=== PATIENT | male | born 1945 | race Caucasian/White ===

== ENCOUNTER 2024-01-22 13:38 | Emergency (ER) | payer MEDICARE, OTHER, SELFPAY ==
[2024-01-22 13:45] VITALS: BP 141/69
[2024-01-22 14:14] LABS: % Basophils 0.9 % (0-2); % Eosinophils 0.9 % (0-6); % Immature Granulocytes 0.6 % (0-0.5); % Monocytes 11.1 % (1.7-9.3); % Neutrophils 82.5 % (42.2-75.2); Absolute Basophils 0.1 10^3/uL (0-0.2); Absolute Eosinophils 0.1 10^3/uL (0-0.7); Absolute Lymphocytes 0.3 10^3/uL (1.2-3.4); Absolute Monocytes 0.8 10^3/uL (0.1-0.6); Absolute Neutrophils 5.7 10^3/uL (1.4-6.5); Hematocrit 37.9 % (39.0-52.0); Hemoglobin 13.7 g/dL (13.0-18.0); Mean Corp Hgb Conc. 36.1 g/dL (33.0-37.0); Mean Corpuscular Hgb 30.8 pg (27.0-31.0); Mean Corpuscular Volume 85.2 fL (80.0-94.0); Nucleated Red Blood Cells % 0 % (-); Platelet Count 199 10^3/uL (130-400); Red Blood Cell Count 4.45 10^6/uL (4.70-6.10); Red Cell Dist. Width 12.5 % (11.5-14.5)
[2024-01-22 14:25] LABS: Lactic Acid 1.1 mmol/L (0.7-2.0)
[2024-01-22 14:26] LABS: ALT (SGPT) 24 U/L (0-50); AST (SGOT) 26 U/L (17-59); Albumin 4.4 g/dl (3.5-5.0); Alkaline Phosphatase 59 U/L (38-126); Blood Urea Nitrogen 13 mg/dl (9-20); Calcium 9.7 mg/dl (8.4-10.2); Carbon Dioxide 27 mmol/L (22-30); Chloride 98 mmol/L (98-107); Glucose 134 mg/dl (70-99); Potassium 4.2 mmol/L (3.5-5.1); Sodium 131 mmol/L (135-145); Total Bilirubin 0.3 mg/dl (0.2-1.3); Total Protein 6.7 g/dl (6.3-8.2); eGFR > 60.00
[2024-01-22 14:31] LABS: COVID-19 Antigen Negative (Negative)
[2024-01-22 16:31] VITALS: BMI 25.1
--- NOTE | 2024-01-22 17:05 | ED.GENMED ---
History of Present Illness
General
Chief Complaint: Cold/Flu/URI Symptoms
Time Seen by Provider: 01/22/24 16:26
Travel History
Have you had any contact with someone who has COVID-19?: No
Do you have any symptoms of coronavirus? Fever > 100 degrees, chills, cough, shortness of breath, sore throat, loss of taste or smell, muscle aches, or headache?: Yes
Symptoms:: bodyaches
History of Present Illness
History of Present Illness:
78-year-old male with history of prior TIA, hypertension, hyperlipidemia, and diet-controlled diabetes presents to the emergency department for evaluation of fatigue, nasal congestion, and low-grade fevers for the past 3 days. Denies any chest pain
or dyspnea. Cough is generally nonproductive. No chest pain or leg swelling.
Past History
Past History
ED Past Medical History: HTN, NIDDM, Psychiatric (Depression and schizophrenia) and Other (Detached retina)
ED Past Surgical History: None
Social History
Tobacco: Former smoker
Drug: None and Former user
Personal: Single
Living: alone
Employment: Not employed
Family History
Family History: Other
Review of Systems
Review of Systems
Allergies reviewed?: Yes
All Other Systems: ROS reviewed and negative except as documented in HPI and ROS
Phy Exam
Physical Exam
Physical Exam:
GEN: Well appearing, NAD, WDWN
HEENT: Oral mucosa moist, no scleral icterus
Cardiac: Regular rate and rhythm, no murmurs
Lung: No respiratory distress, no tachypnea, lungs clear to auscultation bilaterally
MSK: No gross deformity or injuries
Skin: Good color, no pallor or jaundice, no rashes
Neuro: AO x3, moves all extremities freely
Psych: Calm, cooperative
Course
Orders/Labs/Results
Orders:
Orders
01/22/24 13:47
CXR2 [CR Chest - 2 Views ] Urgent
Comment:
Reason For Exam: uri s/s
01/22/24 14:02
COVID-19 Antigen Urgent
Source: Nasal Swab
Complete Blood Count/With Diff Urgent
Comprehensive Metabolic Panel Urgent
Lactic Acid Urgent
Blood Culture Urgent
GRISELDA Source: Blood/Venous
Specimen Description:
Influenza A+B Rapid Molecular Urgent
GRISELDA Source: Nasal Swab
Specimen Description:
Abnormal Lab Results
01/22/24
14:02
RBC 4.45 L 10^6/uL
(4.70-6.10)
Hct 37.9 L %
(39.0-52.0)
Absolute Lymphs (auto) 0.3 L 10^3/uL
(1.2-3.4)
Absolute Monos (auto) 0.8 H 10^3/uL
(0.1-0.6)
Immature Gran % 0.6 H %
(0-0.5)
Neutrophils % 82.5 H %
(42.2-75.2)
Lymphocytes % 4.0 L %
(20.5-51.1)
Monocytes % 11.1 H %
(1.7-9.3)
Sodium 131 L mmol/L
(135-145)
Glucose 134 H mg/dl
(70-99)
01/22/24 14:02
01/22/24 14:02
Vital Signs
Initial and Last Documented VS:
Initial Vital Signs
Temp Pulse Resp BP Pulse Ox
100.2 F 80 16 141/69 98
01/22/24 13:45 01/22/24 13:45 01/22/24 13:45 01/22/24 13:45 01/22/24 13:45
Last Documented Vital Signs
Temp Pulse Resp BP Pulse Ox
100.2 F 80 16 141/69 98
01/22/24 13:45 01/22/24 13:45 01/22/24 13:45 01/22/24 13:45 01/22/24 13:45
MDM/Problems Addressed
MDM/Problems Addressed:
Patient is clinically well with normal vital signs. He is positive for influenza A. He is outside the treatment window for antivirals at this time. Discussed supportive care and return parameters. Chest x-ray is unremarkable by my interpretation
*Critical Care Note
Total Time (30-74mins, 75-104mins- exclusive of procedures): Not Applicable
ED Attending Note
-
Portions of this chart may have been created with voice recognition software.� Occasional wrong word or��sound alike� substitutions may have occurred due to the inherent limitations of voice recognition software.
Discharge Plan
Departure
Patient Disposition: Home (Routine Discharge)
Date of Disposition: 01/22/24
Time of Disposition: 17:05
Patient with high blood pressure during this ER visit?: Yes
Discharge Problem:
Influenza A
Instructions: Flu, Adult (DC)
Prescriptions:
No Action
simvastatin 10 MG tablet
20 mg PO DAILY
lamotrigine [Lamictal] 150 MG tablet
100 mg PO DAILY
venlafaxine [Effexor XR] 150 MG capsule,extended release 24hr
300 mg PO DAILY
Patient Comments:
patient states unsure of doses
olanzapine [Zyprexa] 10 MG tablet
10 mg PO HS
risperidone [Risperdal] 3 MG tablet
3 mg PO BID
lorazepam [Ativan] 1 MG tablet
1 mg PO DAILY
ibuprofen 600 MG tablet
600 mg PO Q6H Qty: 30 0RF
valsartan-hydrochlorothiazide 1 EACH tablet
1 ea PO DAILY
valsartan 80 MG tablet
80 mg PO DAILY
amlodipine 5 MG tablet
5 mg PO DAILY
aspirin 325 MG tablet
81 mg PO DAILY
famotidine 10 mg Tablet
10 mg PO BID
Interventions
Interventions:
*Risk Screen - Suicide Last Done: 01/22/24 16:39
*General Assessment Last Done: 01/22/24 16:31
*Neglect/Abuse Screening Last Done: 01/22/24 16:38
ED- Fall Risk Assessment Last Done: 01/22/24 17:35
*ED COVID-19 Vaccine History Last Done: 01/22/24 13:45
*Nursing Disposition Last Done: 01/22/24 17:35
ED- Pulmonary Assessment Last Done: 01/22/24 16:34
Discharge Date and Time
Discharge Date/Time: 01/22/24 17:36
== END 2024-01-22 17:36 | disposition home or self-care (01) ==
LOC: EMR 13:38
PROVIDERS: Emergency Medicine; EMERGENCY PHYSICIAN Emergency Medicine; FAMILY PHYSICIAN Internal Medicine
DX: J10.1 Influenza due to other identified influenza virus with other respiratory manifestations (principal); I10 Essential (primary) hypertension; E78.5 Hyperlipidemia, unspecified; E11.9 Type 2 diabetes mellitus without complications; Z87.891 Personal history of nicotine dependence
CPT/HCPCS: 99284; 71046; 80053; 83605; 85025; 87040; 87502; 87811

== ENCOUNTER → 2024-02-19 16:18 | Outpatient (REF) | payer MEDICARE, OTHER, SELFPAY ==
[2024-02-19 17:34] LABS: % Basophils 1.1 % (0-2); % Eosinophils 4.6 % (0-6); % Immature Granulocytes 0.7 % (0-0.5); % Monocytes 10.4 % (1.7-9.3); % Neutrophils 64.2 % (42.2-75.2); Absolute Basophils 0.1 10^3/uL (0-0.2); Absolute Eosinophils 0.3 10^3/uL (0-0.7); Absolute Immature Granulocytes 0.1 10^3/uL (0-0.05); Absolute Lymphocytes 1.4 10^3/uL (1.2-3.4); Absolute Monocytes 0.8 10^3/uL (0.1-0.6); Absolute Neutrophils 4.7 10^3/uL (1.4-6.5); Hematocrit 41.1 % (39.0-52.0); Hemoglobin 14.3 g/dL (13.0-18.0); Mean Corp Hgb Conc. 34.8 g/dL (33.0-37.0); Mean Corpuscular Hgb 30.1 pg (27.0-31.0); Mean Corpuscular Volume 86.5 fL (80.0-94.0); Mean Platelet Volume 9.1 fL (7.4-10.4); Nucleated Red Blood Cells % 0 % (-); Platelet Count 270 10^3/uL (130-400); Red Blood Cell Count 4.75 10^6/uL (4.70-6.10); Red Cell Dist. Width 13.4 % (11.5-14.5); White Blood Cell Count 7.3 10^3/uL (4.8-10.8)
[2024-02-19 17:51] LABS: ALT (SGPT) 33 U/L (0-50); AST (SGOT) 28 U/L (17-59); Albumin 4.5 g/dl (3.5-5.0); Alkaline Phosphatase 71 U/L (38-126); Blood Urea Nitrogen 12 mg/dl (9-20); Calcium 10.2 mg/dl (8.4-10.2); Carbon Dioxide 28 mmol/L (22-30); Chloride 103 mmol/L (98-107); Glucose 115 mg/dl (70-99); HDL Cholesterol 59 mg/dl; LDL Cholesterol, Calculated 78 mg/dl; Potassium 4.6 mmol/L (3.5-5.1); Sodium 137 mmol/L (135-145); Total Bilirubin 0.4 mg/dl (0.2-1.3); Total Cholesterol 161 mg/dl (50-199); Total Protein 7.1 g/dl (6.3-8.2); Triglyceride 121 mg/dl (10-149); Very Low Density Lipoprotein 24 mg/dl (0-30); eGFR > 60.00
[2024-02-19 21:40] LABS: Microalbumin, Random Urine < 0.6 mg/dl (0.6-1.7)
[2024-02-20 08:36] LABS: Glycohemoglobin (HgbA1c) 6.5 % (4.0-5.6)
== END ==
LOC: REG 16:18
PROVIDERS: ATTENDING PHYSICIAN Internal Medicine
DX: I10 Essential (primary) hypertension (principal); E11.9 Type 2 diabetes mellitus without complications; E78.2 Mixed hyperlipidemia
CPT/HCPCS: 36415; 80053; 80061; 82043; 82570; 83036; 85025

== ENCOUNTER 2024-03-24 03:19 | Emergency (ER) | payer MEDICARE, OTHER, SELFPAY ==
[2024-03-24 03:24] VITALS: BMI 25.0
[2024-03-24 03:33] VITALS: BP 171/79
[2024-03-24 03:44] LABS: % Basophils 0.8 % (0-2); % Eosinophils 4.6 % (0-6); % Immature Granulocytes 0.6 % (0-0.5); % Lymphocytes 21.5 % (20.5-51.1); % Monocytes 10.4 % (1.7-9.3); % Neutrophils 62.1 % (42.2-75.2); Absolute Basophils 0.1 10^3/uL (0-0.2); Absolute Eosinophils 0.3 10^3/uL (0-0.7); Absolute Lymphocytes 1.4 10^3/uL (1.2-3.4); Absolute Monocytes 0.7 10^3/uL (0.1-0.6); Absolute Neutrophils 4.1 10^3/uL (1.4-6.5); Hematocrit 37.5 % (39.0-52.0); Hemoglobin 13.4 g/dL (13.0-18.0); Mean Corp Hgb Conc. 35.7 g/dL (33.0-37.0); Mean Corpuscular Hgb 30.9 pg (27.0-31.0); Mean Corpuscular Volume 86.4 fL (80.0-94.0); Mean Platelet Volume 9.1 fL (7.4-10.4); Nucleated Red Blood Cells % 0 % (-); Platelet Count 251 10^3/uL (130-400); Red Blood Cell Count 4.34 10^6/uL (4.70-6.10); Red Cell Dist. Width 13.2 % (11.5-14.5); White Blood Cell Count 6.6 10^3/uL (4.8-10.8)
[2024-03-24 04:00] VITALS: BP 161/61
[2024-03-24 04:15] LABS: ALT (SGPT) 20 U/L (0-50); AST (SGOT) 28 U/L (17-59); Albumin 4.3 g/dl (3.5-5.0); Alkaline Phosphatase 46 U/L (38-126); Blood Urea Nitrogen 30 mg/dl (9-20); Calcium 10.2 mg/dl (8.4-10.2); Carbon Dioxide 23 mmol/L (22-30); Chloride 106 mmol/L (98-107); Estimated Creatinine Clearance 64 ml/min; Glucose 126 mg/dl (70-99); Potassium 4.4 mmol/L (3.5-5.1); Sodium 138 mmol/L (135-145); Total Bilirubin 0.4 mg/dl (0.2-1.3); Total Protein 6.8 g/dl (6.3-8.2); eGFR > 60.00
[2024-03-24 04:30] LABS: Troponin I 0.016 ng/ml
--- NOTE | 2024-03-24 04:48 | ED.GENMED ---
History of Present Illness
General
Chief Complaint: Chest Pain
Source: patient
Exam Limitations: none
Time Seen by Provider: 03/24/24 03:41
Nursing documentation reviewed up to this point in time: agreed with
Travel History
Have you had any contact with someone who has COVID-19?: No
Do you have any symptoms of coronavirus? Fever > 100 degrees, chills, cough, shortness of breath, sore throat, loss of taste or smell, muscle aches, or headache?: No
History of Present Illness
History of Present Illness:
Patient presents to ED secondary to intermittent chest pain associated with 'racing' sensation since yesterday afternoon. Chest pain described as dull, nonradiating, without any alleviating or exacerbating factors. Patient states that chest pain
would last seconds to minutes, with spontaneous resolution. Patient has had number of similar symptoms in the past, and has been evaluated by bd special education teacher. Denies previous history of heart disease. Denies recent illness. Denies recent travel or
surgery. Denies leg pain or swelling. Denies back pain. Denies trauma. At the time of evaluation ED, patient is without any chest pain.
Past History
Past History
ED Past Medical History: HTN, NIDDM, Psychiatric (Depression and schizophrenia) and Other (Detached retina)
ED Past Surgical History: None
Social History
Tobacco: Former smoker
Drug: None and Former user
Personal: Single
Living: alone
Employment: Not employed
Family History
Family History: Other
Review of Systems
Review of Systems
Allergies reviewed?: Yes
All Other Systems: ROS reviewed and negative except as documented in HPI and ROS
Constitutional: Reports no symptoms; Denies fever
EENT: Reports no symptoms
Respiratory: Reports no symptoms; Denies trouble breathing
Cardiac: Reports chest pain and palpitations
ABD/GI: Reports no symptoms
: Reports no symptoms
Musculoskeletal: Reports no symptoms
Skin: Reports no symptoms
Neurological: Reports no symptoms
Phy Exam
Physical Exam
Physical Exam:
Physical Exam
General: no apparent distress, not acutely ill. afebrile.
Head: nc/at. eomi
Neck: supple. no meningeal signs.
Heart: s1/s2 regular rate and rhythm, no murmur. equal radial pulses.
Lungs: no acute respiratory distress. clear bilaterally
Abdomen: normal bowel sounds. not tender.
Neuro: alert and oriented. no focal neurological deficits
Skin: no rash
Psychiatric: well kept. interactive and cooperative
Extremities: no edema. no calf tenderness
Scores
Heart Score for Chest Pain Patients
STEMI patient?: No
History: Slightly or Non-Suspicious
ECG: Normal
Age: >/= 65 years
Risk Factors: 1 or 2 Risk Factors
Troponin: </= Normal Limit
Heart Score for Chest Pain Patients: 3
Heart Score Risk: 2.5% MACE over next 6 weeks
Course
Orders/Labs/Results
Orders:
Orders
03/24/24 03:22
Electrocardiogram (*1) Urgent
Reason for Study: Chest Pain
Cardiac Monitoring- Treatment ONCE
EKG- Treatment ONCE
IV Insert/Care/Rem.- Treatment PRN
O2 Therapy [RESP] Urgent
Titrate/Wean O2 to maintain O2 sat greater than (%): 90
Special Instructions: Maintain sats >/=90%
Pulse Ox/spot Check [RESP] Urgent
Quantity: 1
Special Instructions: ON ROOM AIR
03/24/24 03:39
Complete Blood Count/With Diff Urgent
Comprehensive Metabolic Panel Urgent
Troponin I Urgent
03/24/24 04:48
0.9% Sodium Chloride 500 ml [Nss] 500 ml IV BOLUS
03/24/24 07:30
Electrocardiogram (*1) Urgent
Reason for Study: Chest Pain
EKG- Treatment ONCE
03/24/24 07:42
Troponin I Urgent
Abnormal Lab Results
03/24/24
03:39
RBC 4.34 L 10^6/uL
(4.70-6.10)
Hct 37.5 L %
(39.0-52.0)
Absolute Monos (auto) 0.7 H 10^3/uL
(0.1-0.6)
Immature Gran % 0.6 H %
(0-0.5)
Monocytes % 10.4 H %
(1.7-9.3)
BUN 30 H mg/dl
(9-20)
Glucose 126 H mg/dl
(70-99)
03/24/24 03:39
03/24/24 03:39
Vital Signs
Initial and Last Documented VS:
Initial Vital Signs
Temp Pulse Resp BP Pulse Ox
98.7 F 70 14 171/79 96
03/24/24 03:33 03/24/24 03:33 03/24/24 03:33 03/24/24 03:33 03/24/24 03:33
Last Documented Vital Signs
Temp Pulse Resp BP Pulse Ox
98.7 F 64 20 161/83 95
03/24/24 03:33 03/24/24 08:45 03/24/24 08:45 03/24/24 08:00 03/24/24 08:45
MDM/Problems Addressed
MDM/Problems Addressed:
Patient remains chest pain-free during observation ED. Minimal elevation in troponin noted, without any acute changes on EKG. History and exam inconsistent with acute coronary syndrome. As such, will repeat troponin with EKG. If there is any
significant change with his second troponin, will contact cardiology for consultation.
*EKG
Interpreted by ED Provider?: Yes
EKG Intrepretation Date: 03/24/24
Heart Rate: 65
Rate: normal
Rhythm: sinus
[place]: normal axis
Interval: normal interval
*Critical Care Note
Total Time (30-74mins, 75-104mins- exclusive of procedures): Not Applicable
ED Attending Note
-
Portions of this chart may have been created with voice recognition software.� Occasional wrong word or��sound alike� substitutions may have occurred due to the inherent limitations of voice recognition software.
Discharge Plan
Departure
Patient Disposition: Home (Routine Discharge)
Date of Disposition: 03/24/24
Time of Disposition: 09:07
Patient with high blood pressure during this ER visit?: No
Condition: Good
Discharge Problem:
Chest pain
Instructions: Chest Pain PCP Follow Up
Prescriptions:
No Action
Unobtainable
0
Referrals:
Sivakumar Mccracken MD [Family Provider] -
Interventions
Interventions:
*Risk Screen - Suicide Last Done: 03/24/24 03:24
*General Assessment Last Done: 03/24/24 03:24
*Neglect/Abuse Screening Last Done: 03/24/24 03:24
ED- Fall Risk Assessment Last Done: 03/24/24 03:51
*ED COVID-19 Vaccine History Last Done: 03/24/24 03:24
*Nursing Disposition Last Done: 03/24/24 09:32
ED- Cardiac Assessment Last Done: 03/24/24 03:45
Discharge Date and Time
Discharge Date/Time: 03/24/24 09:33
Print Language: LAO
[2024-03-24 05:00] VITALS: BP 136/67
[2024-03-24] MEDS: NSS 500 IV (05:06)
[2024-03-24 06:00] VITALS: BP 119/73
[2024-03-24 07:39] VITALS: BP 162/78
[2024-03-24 08:00] VITALS: BP 161/83
[2024-03-24 08:13] LABS: Troponin I < 0.012 ng/ml
== END 2024-03-24 09:33 | disposition home or self-care (01) ==
LOC: EMR 03:19
PROVIDERS: Emergency Medicine; EMERGENCY PHYSICIAN Emergency Medicine; FAMILY PHYSICIAN Internal Medicine
DX: R07.89 Other chest pain (principal); I10 Essential (primary) hypertension; E11.9 Type 2 diabetes mellitus without complications; F20.9 Schizophrenia, unspecified; Z87.891 Personal history of nicotine dependence
CPT/HCPCS: 99283; 96360; 80053; 84484; 85025; 93005

== ENCOUNTER → 2024-05-12 09:17 | Emergency (ER) | payer MEDICARE, OTHER, SELFPAY ==
[2024-05-12 09:23] VITALS: BP 175/105; BMI 24.6
--- NOTE | 2024-05-12 09:33 | ED.GENMED ---
History of Present Illness
<Pete German DO - Last Filed: 05/12/24 14:25>
General
Chief Complaint: Seizure
Source: patient and ambulance crew
Exam Limitations: none
Time Seen by Provider: 05/12/24 09:33
Nursing documentation reviewed up to this point in time: agreed with
History of Present Illness
History of Present Illness:
78-year-old male presents emergency room after having episode of unresponsiveness. Is unclear whether it was witnessed. He bit his lip and lost control of his bladder.
Past History
<Maddy Marrero, TECHNICAL ASST - Last Filed: >
Past History
ED Past Medical History: HTN, NIDDM, Psychiatric (Depression and schizophrenia) and Other (Detached retina)
ED Past Surgical History: None
Social History
Tobacco: Former smoker
Drug: None and Former user
Personal: Single
Living: alone
Employment: Not employed
Family History
Family History: Other
Review of Systems
<Pete German, DO - Last Filed: 05/12/24 14:25>
Review of Systems
Allergies reviewed?: Yes
All Other Systems: Not applicable
Constitutional: Reports no symptoms
EENT: Reports no symptoms
Respiratory: Reports no symptoms
Cardiac: Reports no symptoms
ABD/GI: Reports no symptoms
: Reports incontinence
Musculoskeletal: Reports no symptoms
Skin: Reports no symptoms
Neurological: Reports no symptoms
Endocrine: Reports no symptoms
Hematologic/Lymphatic: Reports no symptoms
Psychiatric: Reports no symptoms
Phy Exam
<Pete German DO - Last Filed: 05/12/24 14:25>
Physical Exam
Physical Exam:
Physical Exam
General: no apparent distress, not acutely ill, wet pants from urination
Neck: supple. no meningeal signs. normal posterior pharynx
Heart: s1/s2 regular rate and rhythm, no murmur. equal radial
pulses.
HEENT: Pupils equal round reactive to light, EOMI
Lungs: no acute respiratory distress. clear bilaterally
Abdomen: normal bowel sounds. not tender. no CVAT
Neuro: alert and oriented. no focal neurological deficits cranial nerves II through XII intact
Skin: no rash
Psychiatric: well kept. interactive and cooperative
Extremities: no edema. no calf tenderness. negative homans. good distal pulses
Course
<Pete German, DO - Last Filed: 05/12/24 14:25>
Orders/Labs/Results
Orders:
Orders
05/12/24 09:29
EKG [Electrocardiogram (*1)] Urgent
Reason for Study: Hypertension, Benign
EKG- Treatment ONCE
05/12/24 09:51
CT Head W/o Iv Contrast Urgent
Comment:
Reason For Exam: seizure
IV Insert/Care/Rem.- Treatment PRN
05/12/24 10:02
Complete Blood Count/With Diff Urgent
Comprehensive Metabolic Panel Urgent
05/12/24 14:16
Lamotrigine [Lamictal] 100 mg PO NOW STA
Abnormal Lab Results
05/12/24 05/12/24
09:40 10:02
Abs Immat Gran (auto) 0.1 H 10^3/uL
(0-0.05)
Absolute Neuts (auto) 7.4 H 10^3/uL
(1.4-6.5)
Absolute Lymphs (auto) 0.8 L 10^3/uL
(1.2-3.4)
Immature Gran % 0.6 H %
(0-0.5)
Neutrophils % 81.8 H %
(42.2-75.2)
Lymphocytes % 9.1 L %
(20.5-51.1)
Carbon Dioxide 19 L mmol/L
(22-30)
Glucose 204 H mg/dl
(70-99)
Calcium 10.3 H mg/dl
(8.4-10.2)
POC Glucose 240 H mg/dl
(70-99)
05/12/24 10:02
05/12/24 10:02
Vital Signs
Initial and Last Documented VS:
Initial Vital Signs
Temp Pulse Resp BP Pulse Ox
98.6 F 95 24 175/105 96
05/12/24 09:23 05/12/24 09:23 05/12/24 09:23 05/12/24 09:23 05/12/24 09:23
Last Documented Vital Signs
Temp Pulse Resp BP Pulse Ox
98.6 F 79 22 172/93 96
05/12/24 09:23 05/12/24 14:00 05/12/24 14:00 05/12/24 13:00 05/12/24 13:15
<Maddy Marrero, TECHNICAL ASST - Last Filed: >
Orders/Labs/Results
Orders:
Orders
05/12/24 09:29
EKG [Electrocardiogram (*1)] Urgent
Reason for Study: Hypertension, Benign
EKG- Treatment ONCE
05/12/24 09:51
CT Head W/o Iv Contrast Urgent
Comment:
Reason For Exam: seizure
IV Insert/Care/Rem.- Treatment PRN
05/12/24 10:02
Complete Blood Count/With Diff Urgent
Comprehensive Metabolic Panel Urgent
05/12/24 14:16
Lamotrigine [Lamictal] 100 mg PO NOW STA
Abnormal Lab Results
05/12/24 05/12/24
09:40 10:02
Abs Immat Gran (auto) 0.1 H 10^3/uL
(0-0.05)
Absolute Neuts (auto) 7.4 H 10^3/uL
(1.4-6.5)
Absolute Lymphs (auto) 0.8 L 10^3/uL
(1.2-3.4)
Immature Gran % 0.6 H %
(0-0.5)
Neutrophils % 81.8 H %
(42.2-75.2)
Lymphocytes % 9.1 L %
(20.5-51.1)
Carbon Dioxide 19 L mmol/L
(22-30)
Glucose 204 H mg/dl
(70-99)
Calcium 10.3 H mg/dl
(8.4-10.2)
POC Glucose 240 H mg/dl
(70-99)
05/12/24 10:02
05/12/24 10:02
Vital Signs
Initial and Last Documented VS:
Initial Vital Signs
Temp Pulse Resp BP Pulse Ox
98.6 F 95 24 175/105 96
05/12/24 09:23 05/12/24 09:23 05/12/24 09:23 05/12/24 09:23 05/12/24 09:23
Last Documented Vital Signs
Temp Pulse Resp BP Pulse Ox
98.6 F 79 22 172/93 96
05/12/24 09:23 05/12/24 14:00 05/12/24 14:00 05/12/24 13:00 05/12/24 13:15
<Pete German, DO - Last Filed: 05/12/24 14:25>
MDM/Problems Addressed
Differential Diagnosis Includes:
Seizure, intracranial bleed
MDM/Problems Addressed:
78-year-old male with likely seizure. Will increase Lamictal to twice a day. Unclear cause of seizure. Patient will follow-up with neurology.
Chronic conditions affecting care: HTN and Psychiatric illness (Multiple psychiatric medications that could cause seizure)
Acute Exacerbation and/or Progression of Chronic Illness: HTN and Psychiatric illness (Multiple psychiatric medications that could cause seizure)
<Pete German DO - Last Filed: 05/12/24 14:25>
*Radiology
Radiology exam reviewed: radiology read reviewed (CT head no acute findings)
*Pulse Oximetry
Patient hypoxic: no
*EKG
Interpreted by ED Provider?: Yes
EKG Intrepretation Date: 05/12/24
EKG Intrepretation Time: 09:32
Interpretation: normal
Comparison EKG: changes noted
Heart Rate: 92
Rate: normal
Rhythm: sinus
[place]: normal axis
Interval: normal interval
QRS Pattern: normal QRS
Ischemia: no ischemia
*Neon Electrician Interpretation
Rate: normal
Interpretation: normal
Heart Rate: 90
Rhythm: sinus
*Critical Care Note
Total Time (30-74mins, 75-104mins- exclusive of procedures): Not Applicable
Data Reviewed
Review of Other/Old Records Reveals: Labs
<Pete German DO - Last Filed: 05/12/24 14:25>
Patient Management
Social determinants of health affecting care: Living situation
Discussion with other providers: [facility] (Seen by Dr. Butler, neurology, recommends increase Lamictal to 100 mg twice a day)
Escalation/DeEscalation of care consider admission/obs:
Admit not indicated
ED Attending Note
<Maddy Marrero, TECHNICAL ASST - Last Filed: >
-
Portions of this chart may have been created with voice recognition software.� Occasional wrong word or��sound alike� substitutions may have occurred due to the inherent limitations of voice recognition software.
Discharge Plan
Departure
Patient Disposition: Home (Routine Discharge)
Date of Disposition: 05/12/24
Time of Disposition: 14:22
Patient with high blood pressure during this ER visit?: Yes
Condition: Good
Discharge Problem:
Seizure
Instructions: Seizures, Adult (DC), BLOOD PRESSURE
Prescriptions:
New
lamotrigine [Subvenite] 100 mg tablet
100 mg PO BID Qty: 60 0RF
Referrals:
Jerrod Butler MD [Active] - Call in 1-3 days for appt
Sivakumar Mccracken MD [Family Provider] -
Interventions
Interventions:
*Risk Screen - Suicide Last Done: 05/12/24 09:23
*General Assessment Last Done: 05/12/24 09:23
*Neglect/Abuse Screening Last Done: 05/12/24 09:23
*ED COVID-19 Vaccine History Last Done: 05/12/24 09:30
ED- Neurological Assessment Last Done: 05/12/24 09:32
Discharge Date and Time
Print Language: TAJIK
[2024-05-12 09:41] LABS: Glucose - Point of Care 240 mg/dl (70-99)
[2024-05-12 10:17] LABS: % Basophils 0.8 % (0-2); % Eosinophils 1.1 % (0-6); % Immature Granulocytes 0.6 % (0-0.5); % Lymphocytes 9.1 % (20.5-51.1); % Monocytes 6.6 % (1.7-9.3); % Neutrophils 81.8 % (42.2-75.2); Absolute Basophils 0.1 10^3/uL (0-0.2); Absolute Eosinophils 0.1 10^3/uL (0-0.7); Absolute Immature Granulocytes 0.1 10^3/uL (0-0.05); Absolute Lymphocytes 0.8 10^3/uL (1.2-3.4); Absolute Monocytes 0.6 10^3/uL (0.1-0.6); Absolute Neutrophils 7.4 10^3/uL (1.4-6.5); Hematocrit 39.7 % (39.0-52.0); Hemoglobin 14.5 g/dL (13.0-18.0); Mean Corp Hgb Conc. 36.5 g/dL (33.0-37.0); Mean Corpuscular Hgb 30.6 pg (27.0-31.0); Mean Corpuscular Volume 83.8 fL (80.0-94.0); Nucleated Red Blood Cells % 0 % (-); Red Blood Cell Count 4.74 10^6/uL (4.70-6.10); Red Cell Dist. Width 12.5 % (11.5-14.5)
[2024-05-12 10:33] LABS: ALT (SGPT) 23 U/L (0-50); AST (SGOT) 35 U/L (17-59); Albumin 4.9 g/dl (3.5-5.0); Alkaline Phosphatase 53 U/L (38-126); Blood Urea Nitrogen 19 mg/dl (9-20); Calcium 10.3 mg/dl (8.4-10.2); Carbon Dioxide 19 mmol/L (22-30); Chloride 104 mmol/L (98-107); Estimated Creatinine Clearance 68 ml/min; Glucose 204 mg/dl (70-99); Potassium 4.9 mmol/L (3.5-5.1); Sodium 137 mmol/L (135-145); Total Bilirubin 0.6 mg/dl (0.2-1.3); Total Protein 7.5 g/dl (6.3-8.2); eGFR > 60.00
[2024-05-12 11:00] VITALS: BP 154/77
[2024-05-12 12:00] VITALS: BP 165/99
[2024-05-12 13:00] VITALS: BP 172/93
--- NOTE | 2024-05-12 13:18 | CON.NEURO4 ---
Consultation - Neurology 4
-
CONSULTING PHYSICIAN: Alex Butler
REFERRING PHYSICIAN: ER
DICTATED BY: Alex Butler
DATE/TIME OF REQUEST: 05/12/24
DATE/TIME OF CONSULTATION: 05/12/24
Reason for Consultation: Suspect first seizure
History of Present Illness:
Patient is a 78-year-old male with a past ministry of schizophrenia, anxiety, hypertension and hyperlipidemia presented hospital with spell of abnormal behavior witnessed by friends at home concerning for potential epileptic seizure.
Patient reports he has not been eating very well lately but otherwise denies any fevers or unusual headaches or head trauma. He has been consistently taking 1 mg p.o. lorazepam for many years for anxiety and notes no recent changes in this or any
stopping the medication suddenly.
Earlier in the day he had had a friend over who had witnessed unusual episode the patient received to have some staring and poor responsiveness lasting a few minutes. Patient did have a tongue bite with some minor bleeding as well as urinary
incontinence following this. Patient feels it does seem like he had altered or loss of consciousness with this event. 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
He denies any changes in antipsychotic medications or lamotrigine, reports that he sees a PCP but does not follow with a psychiatrist actively.
Past Medical History: Hypertension, hyperlipidemia, schizophrenia, hyperlipidemia, GERD
Surgical History: None
Family History: No family history of seizure
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
Review of Symptoms:
Patient denies any fever, headache, chest pain, shortness of breath, GI or symptoms.
Physical Exam:
Elderly man no acute distress no signs of head trauma there is a small left lateral tongue bite present, eyes are clear, neck supple full range of motion with no masses no meningismus, heart rate regular breathing unlabored abdomen soft nontender no
lower extremity edema
Neurologic Examination:
The patient is awake, alert and oriented x 3. (He/She) is able to follow commands and answer questions appropriately. There is no aphasia or dysarthria. On cranial nerve assessment, pupils are 3 mm bilateral, round and reactive to light and
accommodation. Visual beverly are full. Extraocular movements are intact. Facial sensations are intact and bilaterally symmetrical, there is no facial asymmetry. Hearing is intact bilaterally to normal conversation volume. Tongue palate and uvula
are midline. Sternocleidomastoid strengths are full bilaterally. Motor strengths are 5/5 bilateral upper and lower extremities on medical research [place] scale. There is no drift or involuntary movement noted. Deep tendon reflexes are 2+ bilateral
upper and lower extremities and Babinski is absent bilaterally. Sensations of pain, touch, temperature and vibration are intact and bilaterally symmetrical. There was no extinction noted on double simultaneous stimulation. Coordination is intact by
finger to nose bilaterally.
Neuro Imaging: CT head unremarkable
Impressions
High suspicion for first time epileptic seizure with impairment of consciousness. Patient is on antipsychotic medications at baseline which can produce a small decrease in seizure threshold, CT head noncontrast no significant structural lesions
and patient does not have any history of previous brain injury or strong risk factors for seizures. Given I do think this is most likely an epileptic seizure would err on the side of treatment which in this case would be a small change by
increasing his lamotrigine dose. Explained to the patient that that he should not drive for the next 6 and would need to be reported to [facility] and would need to follow with neurology department. Differential diagnosis would include nonepileptic
seizure or behavioral event, or syncope. Mental status has improved, patient awake alert interactive.
Recommendations:
1. Would increase lamotrigine to 100 mg twice daily
2. Reiterated to patient recommend no changes in lorazepam dosing which has been consistent and stable with
3. Provided information for neurology office follow-up in 4 to 6-weeks
4. For future neurology follow-up would benefit from routine EEG as well as consideration for brain MRI without contrast
5. No barriers to discharge home from standpoint
6. No changes recommended to regular antipsychotic medications
Discussed patient care with: Patient and Dr German
[2024-05-12 13:45] LABS: Platelet Count 252 10^3/uL (130-400)
[2024-05-12] MEDS: LAMICTAL 100 MG PO (14:29)
== END | disposition home or self-care (01) ==
LOC: EMR 09:17
PROVIDERS: EMERGENCY PHYSICIAN Emergency Medicine; FAMILY PHYSICIAN Internal Medicine
DX: R56.9 Unspecified convulsions (principal); I10 Essential (primary) hypertension; E11.9 Type 2 diabetes mellitus without complications; F20.9 Schizophrenia, unspecified; K21.9 Gastro-esophageal reflux disease without esophagitis; E78.00 Pure hypercholesterolemia, unspecified; Z87.891 Personal history of nicotine dependence
CPT/HCPCS: 99284; 70450; 80053; 82962; 85025; 93005

== ENCOUNTER → 2024-07-03 10:32 | Outpatient (REF) | payer MEDICARE, OTHER, SELFPAY ==
[2024-07-03 12:58] LABS: Glycohemoglobin (HgbA1c) 5.9 % (4.0-5.6)
== END ==
LOC: REG 10:32
PROVIDERS: ATTENDING PHYSICIAN Internal Medicine
DX: E11.9 Type 2 diabetes mellitus without complications (principal)
CPT/HCPCS: 36415; 83036

== ENCOUNTER → 2024-11-28 11:57 | Outpatient (REF) | payer MEDICARE, OTHER, SELFPAY ==
[2024-11-28 13:06] LABS: % Basophils 1.3 % (0-2); % Eosinophils 4.1 % (0-6); % Immature Granulocytes 0.3 % (0-0.5); % Monocytes 8.4 % (1.7-9.3); % Neutrophils 62.9 % (42.2-75.2); Absolute Basophils 0.1 10^3/uL (0-0.2); Absolute Eosinophils 0.3 10^3/uL (0-0.7); Absolute Lymphocytes 1.4 10^3/uL (1.2-3.4); Absolute Monocytes 0.5 10^3/uL (0.1-0.6); Absolute Neutrophils 3.9 10^3/uL (1.4-6.5); Hematocrit 42.8 % (39.0-52.0); Hemoglobin 14.9 g/dL (13.0-18.0); Mean Corp Hgb Conc. 34.8 g/dL (33.0-37.0); Mean Corpuscular Hgb 30.6 pg (27.0-31.0); Mean Corpuscular Volume 87.9 fL (80.0-94.0); Mean Platelet Volume 9.1 fL (7.4-10.4); Nucleated Red Blood Cells % 0 % (-); Platelet Count 238 10^3/uL (130-400); Red Blood Cell Count 4.87 10^6/uL (4.70-6.10); White Blood Cell Count 6.2 10^3/uL (4.8-10.8)
[2024-11-28 13:32] LABS: ALT (SGPT) 30 U/L (0-50); AST (SGOT) 28 U/L (17-59); Albumin 4.7 g/dl (3.5-5.0); Alkaline Phosphatase 56 U/L (38-126); Blood Urea Nitrogen 14 mg/dl (9-20); Calcium 9.8 mg/dl (8.4-10.2); Carbon Dioxide 29 mmol/L (22-30); Chloride 100 mmol/L (98-107); Glucose 138 mg/dl (70-99); Potassium 4.5 mmol/L (3.5-5.1); Sodium 138 mmol/L (135-145); Total Bilirubin 0.5 mg/dl (0.2-1.3); Total Protein 6.9 g/dl (6.3-8.2); eGFR > 60.00
[2024-11-28 14:03] LABS: TSH Reflex To Free T4 1.75 uIU/ml (0.47-4.68)
[2024-11-28 15:22] LABS: Glycohemoglobin (HgbA1c) 6.3 % (4.0-5.6)
[2024-11-30 22:14] LABS: Lamotrigine (Lamictal) 3.7 ug/mL (3.0-15.0)
== END ==
LOC: REG 11:57
PROVIDERS: ATTENDING PHYSICIAN Internal Medicine
DX: G40.909 Epilepsy, unspecified, not intractable, without status epilepticus (principal); E11.65 Type 2 diabetes mellitus with hyperglycemia; F20.9 Schizophrenia, unspecified
CPT/HCPCS: 36415; 80053; 80175; 83036; 84443; 85025

== ENCOUNTER 2024-12-20 03:05 | Emergency (ER) | payer MEDICARE, OTHER, SELFPAY ==
[2024-12-20] MEDS: HALDOL 5 MG IM (03:05)
[2024-12-20 03:07] VITALS: BP 185/71
[2024-12-20] MEDS: ATIVAN 2 MG IM (03:16)
--- NOTE | 2024-12-20 03:22 | ED.GENMED ---
History of Present Illness
General
Chief Complaint: Crisis Evaluation
Source: patient, ambulance crew and police
Exam Limitations: clinical condition and altered mental status
Time Seen by Provider: 12/20/24 03:15
Nursing documentation reviewed up to this point in time: agreed with
History of Present Illness
History of Present Illness:
Aggressive 79-year-old black male brought in by police after they were called to investigate a noise complaint. Patient was playing loud music and carrying on a nonverbal tirade. Neighbors called the police. Patient has been fighting and
screaming with police. He comes in disheveled covered in dirt. He was placed in the crisis room and given Haldol and Ativan for his safety.
Past History
Past History
ED Past Medical History: HTN, NIDDM, Psychiatric (Depression and schizophrenia) and Other (Detached retina)
ED Past Surgical History: None
Social History
Tobacco: Former smoker
Drug: None and Former user
Personal: Single
Living: alone
Employment: Not employed
Family History
Family History: Other
Review of Systems
Review of Systems
Allergies reviewed?: Yes
Unable to obtain full review of systems at this time due to: due to acuity
All Other Systems: Not applicable
Psychiatric: Reports hallucinations
Phy Exam
General Physical Exam
General Presentation: severe distress
General age: appears older than age
General Habitus: elderly and poor hygiene
General Mental: angry, anxious, confused and verbally abusive
General Hydration: appears well hydrated
Pulmonary Exam
Pulmonary Exam: lungs clear and no respiratory distress
Musculoskeletal Exam
Musculoskeletal Exam: full ROM
Skin Exam
Skin Exam: normal color and warm/dry
Psychiatric Exam
Psychiatric Exam: agitated, anxious, delusions and hallucination
Course
Orders/Labs/Results
Orders:
Orders
12/20/24 02:45
Haloperidol Lactate [Haldol] 5 mg IM NOW STA
12/20/24 02:55
Lorazepam [Ativan] 2 mg IM NOW STA
12/20/24 03:05
1:1 Observation - Suicide/ Violent Behavior As Directed
12/20/24 03:20
Electrocardiogram (*1) Urgent
Reason for Study: QTc Monitoring
Bedside Glucose- Treatment ONCE
EKG- Treatment ONCE
Urine Drug Abuse Screen Urgent
Restraints - Violent As Directed
Restraint Type-: Seclusion- ED ONLY
Apply From (date): 12/20/24
Apply from (time): 03:20
Remove (date): 12/20/24
Remove (time): 07:20
12/20/24 03:21
CT Head W/o Iv Contrast Urgent
Comment:
Reason For Exam: fight with police, AMS
12/20/24 04:21
Acetaminophen Urgent
Alcohol Urgent
Complete Blood Count/With Diff Urgent
Comprehensive Metabolic Panel Urgent
Salicylate Urgent
12/20/24 06:06
PSYCHIATRY CONSULT Urgent
Consulting Provider: Ed Crouch
Was physician already notified: No
Reason for consult: delusional
12/20/24 06:07
Consult Notification Routine
Specialty to Notify: Psychiatry
Abnormal Lab Results
12/20/24
04:21
WBC 18.7 H 10^3/uL
(4.8-10.8)
Abs Immat Gran (auto) 0.1 H 10^3/uL
(0-0.05)
Absolute Neuts (auto) 15.2 H 10^3/uL
(1.4-6.5)
Absolute Monos (auto) 1.8 H 10^3/uL
(0.1-0.6)
Neutrophils % 81.2 H %
(42.2-75.2)
Lymphocytes % 7.5 L %
(20.5-51.1)
Monocytes % 9.4 H %
(1.7-9.3)
Carbon Dioxide 20 L mmol/L
(22-30)
Glucose 210 H mg/dl
(70-99)
Albumin 5.1 H g/dl
(3.5-5.0)
Salicylates 1.2 L mg/dl
(2.0-20.0)
Acetaminophen < 10 L ug/ml
(10-30)
12/20/24 04:21
12/20/24 04:21
Vital Signs
Initial and Last Documented VS:
Initial Vital Signs
Pulse Resp BP Pulse Ox
138 28 185/71 100
12/20/24 03:07 12/20/24 03:07 12/20/24 03:07 12/20/24 03:07
Last Documented Vital Signs
Pulse Resp BP Pulse Ox
138 28 155/90 100
12/20/24 03:07 12/20/24 03:31 12/20/24 03:31 12/20/24 03:07
Update Note
Update Note:
Telepsych was unable to see patient in a timely fashion. Based on the behaviors I observed combined with the 302 filled out the police, I felt this 302. I did put in a psychiatric consult to be seen by psychiatry today.
ED Attending Note
-
Portions of this chart may have been created with voice recognition software.� Occasional wrong word or��sound alike� substitutions may have occurred due to the inherent limitations of voice recognition software.
Discharge Plan
Departure
Patient Disposition: Psych Facility
Date of Disposition: 12/20/24
Time of Disposition: 06:20
Patient Status:: 302
Condition: Serious
Discharge Problem:
Schizophrenia, Hallucinations
Prescriptions:
No Action
lamotrigine [Subvenite] 100 mg tablet
100 mg PO BID Qty: 60 0RF
Referrals:
UNKNOWN - PT DOES,NOT KNOW [Family Provider] -
Interventions
Interventions:
*Risk Screen - Suicide Last Done: 12/20/24 03:07
*General Assessment Last Done: 12/20/24 03:07
*Neglect/Abuse Screening Last Done: 12/20/24 03:07
ED- Fall Risk Assessment Last Done: 12/20/24 03:07
*ED COVID-19 Vaccine History Last Done: 12/20/24 03:07
ED-Psychological Assessment Last Done: 12/20/24 03:05
Discharge Date and Time
Print Language: BURKINAN
[2024-12-20 03:31] VITALS: BP 155/90
[2024-12-20 04:32] LABS: % Basophils 0.6 % (0-2); % Immature Granulocytes 0.3 % (0-0.5); % Lymphocytes 7.5 % (20.5-51.1); % Monocytes 9.4 % (1.7-9.3); % Neutrophils 81.2 % (42.2-75.2); Absolute Basophils 0.1 10^3/uL (0-0.2); Absolute Eosinophils 0.2 10^3/uL (0-0.7); Absolute Immature Granulocytes 0.1 10^3/uL (0-0.05); Absolute Lymphocytes 1.4 10^3/uL (1.2-3.4); Absolute Monocytes 1.8 10^3/uL (0.1-0.6); Absolute Neutrophils 15.2 10^3/uL (1.4-6.5); Hematocrit 44.4 % (39.0-52.0); Hemoglobin 15.5 g/dL (13.0-18.0); Mean Corp Hgb Conc. 34.9 g/dL (33.0-37.0); Mean Corpuscular Hgb 30.5 pg (27.0-31.0); Mean Corpuscular Volume 87.4 fL (80.0-94.0); Mean Platelet Volume 9.5 fL (7.4-10.4); Nucleated Red Blood Cells % 0 % (-); Platelet Count 283 10^3/uL (130-400); Red Blood Cell Count 5.08 10^6/uL (4.70-6.10); Red Cell Dist. Width 12.8 % (11.5-14.5); White Blood Cell Count 18.7 10^3/uL (4.8-10.8)
[2024-12-20 04:52] LABS: ALT (SGPT) 32 U/L (0-50); AST (SGOT) 47 U/L (17-59); Acetaminophen < 10 ug/ml (10-30); Albumin 5.1 g/dl (3.5-5.0); Alkaline Phosphatase 57 U/L (38-126); Blood Urea Nitrogen 19 mg/dl (9-20); Calcium 9.9 mg/dl (8.4-10.2); Carbon Dioxide 20 mmol/L (22-30); Chloride 100 mmol/L (98-107); Glucose 210 mg/dl (70-99); Potassium 4.2 mmol/L (3.5-5.1); Salicylate 1.2 mg/dl (2.0-20.0); Sodium 139 mmol/L (135-145); Total Bilirubin 0.7 mg/dl (0.2-1.3); Total Protein 7.2 g/dl (6.3-8.2); eGFR > 60.00
[2024-12-20 04:58] LABS: Alcohol None Detected
[2024-12-20 07:30] VITALS: BP 151/92
== END 2024-12-20 13:00 ==
LOC: EMR 03:05
PROVIDERS: CONSULT PHYSICIAN Psychiatry & Neurology Psychiatry; EMERGENCY PHYSICIAN Student in an Organized Health Care Education/Training Program
DX: F20.9 Schizophrenia, unspecified (principal); I10 Essential (primary) hypertension; E11.9 Type 2 diabetes mellitus without complications; Z65.3 Problems related to other legal circumstances; Z87.891 Personal history of nicotine dependence
CPT/HCPCS: 99283; 96372; 80053; 80143; 80179; 82077; 85025; 93005

== ENCOUNTER 2025-02-22 14:11 | Emergency (ER) | payer MEDICARE, OTHER, SELFPAY ==
[2025-02-22 14:22] VITALS: BP 160/81
--- NOTE | 2025-02-22 18:32 | ED.GENMED ---
History of Present Illness
General
Chief Complaint: Dental Problem
Source: patient
Exam Limitations: none
Time Seen by Provider: 02/22/25 18:24
History of Present Illness
History of Present Illness:
Problems with dentition for a month and a half. Has a trouble with financially affording a dentist. Has not seen a dentist. Last 3 to 4 days has had some swelling in his mandible. No significant pain no fever no trouble breathing or swallowing.
Past History
Past History
ED Past Medical History: HTN, NIDDM, Psychiatric (Depression and schizophrenia) and Other (Detached retina)
ED Past Surgical History: None
Social History
Tobacco: Former smoker
Drug: None and Former user
Personal: Single
Living: alone
Employment: Not employed
Family History
Family History: Other
Review of Systems
Review of Systems
All Other Systems: Not applicable
Constitutional: Denies fever
Respiratory: Reports no symptoms
Phy Exam
Physical Exam
Physical Exam:
GENERAL: Alert and oriented in no apparent distress
EYE: Orbits normal.
NECK: Supple, no neck swelling
ENT: Pharynx without erythema. No drooling no stridor no trismus. Mild swelling at the left mid mandible at the angle. Minimal tenderness. Intraorally there are multiple teeth with fillings on the left lower side. There appears to be a possible
early abscess at the base of the gum although no fluctuance
LUNGS: No respiratory distress
NEUROLOGICAL: Alert and oriented , grossly non-focal
SKIN: Warm and dry
PSYCH: Normal and appropriate interaction.
Course
Orders/Labs/Results
Orders:
Orders
02/22/25 18:31
Clindamycin HCl [Cleocin] 300 mg PO NOW STA
Vital Signs
Initial and Last Documented VS:
Initial Vital Signs
Temp Pulse Resp BP Pulse Ox
98.7 F 83 16 160/81 94
02/22/25 14:22 02/22/25 14:22 02/22/25 14:22 02/22/25 14:22 02/22/25 14:22
Last Documented Vital Signs
Temp Pulse Resp BP Pulse Ox
98.7 F 67 18 170/77 97
02/22/25 14:22 02/22/25 18:44 02/22/25 18:44 02/22/25 18:44 02/22/25 18:44
MDM/Problems Addressed
Differential Diagnosis Includes:
Patient with dental caries left lower molars and likely an early abscess. However clinically not drainable at this time. No airway issues no trismus no drooling drooling no stridor. Nothing to support a deep space infection. Antibiotics and
dental follow-up
*Critical Care Note
Total Time (30-74mins, 75-104mins- exclusive of procedures): Not Applicable
ED Attending Note
-
Portions of this chart may have been created with voice recognition software.� Occasional wrong word or��sound alike� substitutions may have occurred due to the inherent limitations of voice recognition software.
Discharge Plan
Departure
Patient Disposition: Home (Routine Discharge)
Date of Disposition: 02/22/25
Time of Disposition: 18:37
Patient with high blood pressure during this ER visit?: Yes
Discharge Problem:
Caries/early periodontal abscess
Instructions: Tooth Abscess (DC), Tooth Decay, Adult (DC), BLOOD PRESSURE
Prescriptions:
New
clindamycin HCl 300 mg capsule
300 mg PO QID 10 Days Qty: 40 0RF
No Action
lamotrigine [Subvenite] 100 mg tablet
100 mg PO BID Qty: 60 0RF
Referrals:
Sivakumar Mccracken MD [Family Provider] - Follow up in 2-3 days
Activity Restrictions/Additional Instructions:
Take antibiotics as directed
The prescription was sent to your pharmacy
You need to call and find a dentist first thing Monday morning for close follow-up. This needs further care\\
Return sooner with increased pain swelling trouble swallowing fever or any other concerning symptoms
Interventions
Interventions:
*Risk Screen - Suicide Last Done: 02/22/25 14:25
*Neglect/Abuse Screening Last Done: 02/22/25 14:25
*Nursing Disposition Last Done: 02/22/25 18:58
Discharge Date and Time
Discharge Date/Time: 02/22/25 18:58
Print Language: MAORI
[2025-02-22] MEDS: CLEOCIN 300 MG PO (18:43)
[2025-02-22 18:44] VITALS: BP 170/77
== END 2025-02-22 18:58 | disposition home or self-care (01) ==
LOC: EMR 14:11
PROVIDERS: EMERGENCY PHYSICIAN Emergency Medicine; FAMILY PHYSICIAN Internal Medicine
DX: K02.9 Dental caries, unspecified (principal); K05.219 Aggressive periodontitis, localized, unspecified severity; I10 Essential (primary) hypertension; E11.9 Type 2 diabetes mellitus without complications
CPT/HCPCS: 99283

== ENCOUNTER → 2025-03-12 07:15 | Outpatient (REF) | payer MEDICARE, OTHER, SELFPAY ==
--- NOTE | 2025-03-12 16:16 | EEG.RPT ---
Electroencephalogram Report
Recording
Date of EE03/12/25
Type of EEG: Routine
Length of EEG recordin minutes
Done with Video Recording: Yes
Patient Status: Outpatient
Recording Conditions: Awake and Drowsy
Hyperventilation Performed: No
Photic Stimulation Performed: Yes
Report
GREATER THAN 1 HOUR EEG REPORT
EEG INTERPRETATION:
Unremarkable EEG for age
CLINICAL CORRELATION:
A normal EEG does not rule out a diagnosis of epilepsy. If clinical suspicion for seizure persists, a prolonged recording may be warranted.
Clinical correlation is advised.
METHODS:
A 21 channel digitized electroencephalogram (EEG) was performed using the 10/20 international system of electrode placement and one-lead of ECG recorded. Video was recorded. Persyst quantitative EEG analysis was performed.
ELECTROENCEPHALOGRAPHER IMPRESSION(S):
Quality of study
Good
Background
There was an unremarkable anterior-posterior voltage gradient of alpha frequency.
With eye opening the background activity changed to a low voltage mixture of frequencies.
There were no significant asymmetries of background activity noted.
Sleep
Drowsiness present
Stage I present
Photic Stimulation
No driving
ECG
Normal sinus rhythm
--- NOTE | 2025-03-13 19:43 | EEGC.RPT ---
Continuous EEG Report
Recording
Start Date of Data Reviewed: 03/12/25
Done with Video Recording: Yes
Electrocardiogram: Unremarkable
Report
�TECHNICAL REMARKS:��This is a technically satisfactory eighteen channel record employing 21 disc electrodes applied according to a measured international 10-20 electrode placement system.��There were no significant technical difficulties.��The
study was done on a [employer] System.
�
CLINICAL INFORMATION: This is an 79-year-old man with behavioral symptoms/encephalopathy. �This study was requested to look for epileptiform activity.
STUDY DURATION:�1h 04 minutes.
�
MEDICATIONS: Lamotrigine
�
REPORT: �At the onset of the EEG, the patient is awake. The background activity consists of 9-10 Hz, persistent, posteriorly dominant, moderate amplitude, symmetric, and rhythmic activity. Anteriorly, it consists of a mixture of low voltage
indeterminate activity and 20-25 Hz, persistent, low amplitude, symmetric, and rhythmic activity. Intermittent generalized 1.5-2 Hz 15-20 microvolts activity lasting for 1-2 seconds with maximal amplitude in the bifrontal area is present. Stepwise
intermittent photic stimulation (1-31 Hz) does not induce any abnormalities. Hyperventilation is not performed. Drowsiness is characterized by low amplitude mixed frequency activity, roving eye movements, and decreased eye blinking and muscle
artifact.
�
IMPRESSION: �This is an abnormal awake and drowsy EEG due to a background slowing and intermittent diffuse slowing indicating the presence of a moderate encephalopathy, but nonspecific in terms of etiology. There is no evidence of focal slowing or
epileptiform activity.
== END ==
LOC: EEG 07:15
PROVIDERS: ATTENDING PHYSICIAN Nurse Practitioner Adult Health; FAMILY PHYSICIAN Internal Medicine
DX: G40.409 Other generalized epilepsy and epileptic syndromes, not intractable, without status epilepticus (principal); R56.9 Unspecified convulsions
CPT/HCPCS: 95813

== ENCOUNTER → 2025-05-19 14:46 | Outpatient (REF) | payer MEDICARE, OTHER, SELFPAY | LOC: MRI 3T 14:46 | PROVIDERS: ATTENDING PHYSICIAN Nurse Practitioner Adult Health; FAMILY PHYSICIAN Internal Medicine | DX: R56.9 Unspecified convulsions (principal) | CPT/HCPCS: 70553; A9575 ==

== ENCOUNTER → 2025-09-29 16:44 | Outpatient (REF) | payer MEDICARE, OTHER, SELFPAY ==
[2025-09-29 17:20] LABS: Hematocrit 43.7 % (39.0-52.0); Hemoglobin 15.1 g/dL (13.0-18.0); Mean Corp Hgb Conc. 34.6 g/dL (33.0-37.0); Mean Corpuscular Volume 89.2 fL (80.0-94.0); Nucleated Red Blood Cells % 0 % (-); Platelet Count 256 10^3/uL (130-400); Red Cell Dist. Width 12.9 % (11.5-14.5)
[2025-09-29 17:40] LABS: Chloride 99 mmol/L (98-107); Potassium 5.0 mmol/L (3.5-5.1); Sodium 137 mmol/L (135-145)
[2025-09-29 17:42] LABS: ALT (SGPT) 28 U/L (0-50); AST (SGOT) 26 U/L (17-59); Albumin 4.8 g/dl (3.5-5.0); Alkaline Phosphatase 83 U/L (38-126); Blood Urea Nitrogen 25 mg/dl (9-20); Calcium 10.6 mg/dl (8.4-10.2); Carbon Dioxide 31 mmol/L (22-30); Glucose 105 mg/dl (70-99); Total Protein 7.6 g/dl (6.3-8.2); eGFR > 60.00
[2025-09-29 18:13] LABS: TSH 2.87 uIU/ml (0.47-4.68)
[2025-09-30 06:31] LABS: Glycohemoglobin (HgbA1c) 6.6 % (4.0-5.9)
== END ==
LOC: REG 16:44
PROVIDERS: ATTENDING PHYSICIAN Internal Medicine
DX: I10 Essential (primary) hypertension (principal); R73.03 Prediabetes; G40.909 Epilepsy, unspecified, not intractable, without status epilepticus; E78.5 Hyperlipidemia, unspecified
CPT/HCPCS: 36415; 80053; 83036; 84439; 84443; 85025

== ENCOUNTER → 2025-09-30 12:44 | Outpatient (REF) | payer MEDICARE, OTHER, SELFPAY ==
[2025-09-30 14:03] LABS: HDL Cholesterol 41 mg/dl; LDL Cholesterol, Calculated 75 mg/dl; Very Low Density Lipoprotein 41 mg/dl (0-30)
== END ==
LOC: REG 12:44
PROVIDERS: ATTENDING PHYSICIAN Internal Medicine
DX: I10 Essential (primary) hypertension (principal); R73.03 Prediabetes; G40.909 Epilepsy, unspecified, not intractable, without status epilepticus; E78.5 Hyperlipidemia, unspecified
CPT/HCPCS: 36415; 80061

== ENCOUNTER 2025-10-22 09:33 | Emergency (ER) | payer MEDICARE, OTHER, SELFPAY ==
[2025-10-22 09:35] VITALS: BP 184/104
--- NOTE | 2025-10-22 10:22 | ED.GENMED ---
History of Present Illness
General
Chief Complaint: Dental Problem
Source: patient
Exam Limitations: none
Time Seen by Provider: 10/22/25 10:04
Nursing documentation reviewed up to this point in time: agreed with
History of Present Illness
History of Present Illness:
80-year-old male presents with a tooth fracture. He says that last night he was biting into a hard piece of bread on a sandwich and felt a crack in his right upper tooth. He says he had trouble getting a hold of his dentist this morning which
prompted ER visit. He denies any dental pain. He denies any other acute complaints.
Past History
Past History
ED Past Medical History: HTN, NIDDM, Psychiatric (Depression and schizophrenia) and Other (Detached retina)
ED Past Surgical History: None
Social History
Tobacco: Former smoker
Drug: None and Former user
Personal: Single
Living: alone
Employment: Not employed
Family History
Family History: Other
Review of Systems
Review of Systems
All Other Systems: ROS reviewed and negative except as documented in HPI and ROS
Respiratory: Reports other (Broken tooth)
Phy Exam
Physical Exam
Physical Exam:
General: Well appearing and non-toxic
HEENT: protecting airway; patient has generally poor dentition, he has an acute appearing fracture of the right upper tooth #4 with visible pulp; he does appear to have an adjacent fracture of tooth #3 that is older
Neck: appears supple
CV: No evidence of cyanosis
Resp: No accessory muscle use
Abd: Non-distended
Extremities: No deformities
Neuro: Alert
Psych: Normal affect
Skin: Intact
Scores
Heart Failure Risk
Heart Failure Risk Score: Not Applicable
Heart Score for Chest Pain Patients
STEMI patient?: Not applicable
Withdrawal Assessment of Alcohol
Withdrawal Assessment Completed?: Not applicable
Course
Vital Signs
Initial and Last Documented VS:
Initial Vital Signs
Temp Pulse Resp BP Pulse Ox
36.8 C 87 16 184/104 94
10/22/25 09:35 10/22/25 09:35 10/22/25 09:35 10/22/25 09:35 10/22/25 09:35
Last Documented Vital Signs
Temp Pulse Resp BP Pulse Ox
36.8 C 87 16 184/104 94
10/22/25 09:35 10/22/25 09:35 10/22/25 09:35 10/22/25 09:35 10/22/25 09:35
MDM/Problems Addressed
Differential Diagnosis Includes:
Dental fracture
MDM/Problems Addressed:
80-year-old male with history as noted presents with tooth issue�he fractured his right upper tooth biting into a sandwich last night. He could not get a hold of his dentist which prompted ER visit. Vitals and exam are as above�he does appear to
have a significant dental fracture tooth #4 as well as an older appearing fracture of tooth #3. Applied dental putty to protect exposed pulp. I spoke with patient's dentist office Dr. Josue Shanks--they can see him today as an emergency
appointment. In the meantime we will prescribe him a prophylactic antibiotic. Patient comfortable with this plan. Stable for discharge.
*Pulse Oximetry
SaO2: 94
Oxygen Mode of Delivery: Room air
Patient hypoxic: no (94%)
*Critical Care Note
Total Time (30-74mins, 75-104mins- exclusive of procedures): Not Applicable
Data Reviewed
Source: patient
Patient Management
Discussion with other providers: [employer] Operations Specialist (Discussed with patient's dentist's office)
ED Attending Note
-
Portions of this chart may have been created with voice recognition software.� Occasional wrong word or��sound alike� substitutions may have occurred due to the inherent limitations of voice recognition software.
Discharge Plan
Departure
Patient Disposition: Home (Routine Discharge)
Date of Disposition: 10/22/25
Time of Disposition: 10:26
Patient with high blood pressure during this ER visit?: Yes
Discharge Problem:
Fracture of tooth
Instructions: Fractured Tooth (DC)
Prescriptions:
New
amoxicillin-pot clavulanate 875-125 mg tablet
1 tab PO BID Qty: 14 0RF
No Action
lamotrigine [Subvenite] 100 mg tablet
100 mg PO BID Qty: 60 0RF
clindamycin HCl 300 mg capsule
300 mg PO QID 10 Days Qty: 40 0RF
Referrals:
Josue Shanks [Other, Dental] - Next open appointment
Referral Note: Call immediately and they will see you today as an emergency appointment
Activity Restrictions/Additional Instructions:
You should follow-up with your dentist today as we discussed. In the meantime you were prescribed a prophylactic antibiotic. Your blood pressure was high in the ER today and that she should see your doctor within the next week to have it rechecked
and discuss if any adjustments need to be made to your medications.
Thank you for visiting the Emergency Department at [facility].
1. Please schedule a follow up appointment as directed. Call first thing tomorrow morning to make an appointment.
2. If indicated, please take your medications as instructed and indicated on discharge paperwork.
3. If any of your symptoms do not improve, or persist, or become more severe within 6-12 hours, please return to the emergency department for further care.
4. Please return to the emergency department if you develop a headache, neck pain/stiffness, fever greater than 100.4F, chest pain, shortness of breath, persistent nausea, vomiting, slurred speech, difficulty walking, numbness/tingling, weakness,
signs of infection or any other symptoms that are worrisome to you.
Please call [phone] if you have any questions.
Discharge Date and Time
Print Language: JAPANESE
== END 2025-10-22 10:47 | disposition home or self-care (01) ==
LOC: EMR 09:33
PROVIDERS: EMERGENCY PHYSICIAN Emergency Medicine; FAMILY PHYSICIAN Internal Medicine
DX: S02.5XXA Fracture of tooth (traumatic), initial encounter for closed fracture (principal); X58.XXXA Exposure to other specified factors, initial encounter; E11.9 Type 2 diabetes mellitus without complications; I10 Essential (primary) hypertension; F20.9 Schizophrenia, unspecified; F32.A Depression, unspecified; Z87.891 Personal history of nicotine dependence
CPT/HCPCS: 99282